=== PATIENT | female | born 1970 | race Two or more races ===

== ENCOUNTER 2016-10-13 20:34 | Emergency (ER) | payer SELFPAY ==
[2016-10-13 22:25] VITALS: BP 156/96
[2016-10-13] MEDS: TETRACAINE HCL 0.5% OPTH(EYE) SOLN 4ML LEFTEYE ONE ×2 (22:45→22:56)
[2016-10-13] MEDS ORDERED: FLUORESCEIN SOD 1 MG TEST STRIP LEFTEYE ONE (23:30)
[2016-10-13] MEDS ORDERED: IBUPROFEN 600 MG TAB PO ONE (23:45)
== END 2016-10-13 23:58 | disposition home or self-care (01) ==
LOC: ER 20:40
DX: S05.12XA Contusion of eyeball and orbital tissues, left eye, initial encounter (principal); X58.XXXA Exposure to other specified factors, initial encounter; Y93.01 Activity, walking, marching and hiking; Y99.8 Other external cause status; Y92.89 Other specified places as the place of occurrence of the external cause
CPT/HCPCS: 70480

== ENCOUNTER 2024-03-15 18:54 | Emergency (ER) | payer SELFPAY ==
[~2024-03-15] VITALS: Ht 170.2 cm; Wt 91.0 kg
[2024-03-15 20:26] LABS: Basophils # (auto) 0 10 ^3/uL (0-0.2); Basophils % (auto) 0.2 % (0.0-2.0); Eosinophils # (auto) 0 10 ^3/uL (0-0.8); Eosinophils % (auto) 0.2 % (0.0-7.0); Hematocrit 42.1 % (36.0-46.0); Hemoglobin 13.8 g/dL (12.2-16.2); Lymphocytes # (auto) 1.1 10 ^3/uL (0.4-5.4); Lymphocytes % (auto) 9.4 % (10.0-50.0); Mean Corpuscular Hemoglobin 25.7 pg (28.0-32.0); Mean Corpuscular Hgb Conc. 32.7 g/dL (32.0-36.0); Mean Corpuscular Volume 78.6 fL (80.0-100.0); Monocytes # (auto) 0.6 10 ^3/uL (0-1.3); Neutrophils # (auto) 9.9 10 ^3/uL (1.6-8.6); Neutrophils % (auto) 85.2 % (37.0-80.0); Platelet Count (auto) 414 10^3/uL (140-450); Red Blood Cells 5.36 10^6/uL (4.0-5.20); White Blood Cell 11.6 10^3/uL (4.4-10.8)
[2024-03-15 20:28] LABS: Red Cell Distribution Width 20.4 % (11.8-14.3)
[2024-03-15 20:40] LABS: Chloride 100 mmol/L (98-107); Potassium 3.4 mmol/L (3.5-5.1); Sodium 136 mmol/L (136-145)
[2024-03-15 20:41] LABS: Anion Gap 7 (5-15); Carbon Dioxide 29 mmol/L (20-30)
[2024-03-15 20:42] LABS: Calcium 9.6 mg/dL (8.7-10.4)
[2024-03-15 20:46] LABS: Glucose 126 mg/dL (74-106)
[2024-03-15 20:47] LABS: BUN/Creatinine Ratio 12.1 (10.0-20.0); Blood Urea Nitrogen 8 mg/dL (9-23)
[2024-03-15 22:35] VITALS: BP 147/91; TEMP 98.6
[2024-03-15] MEDS: SODIUM CHLORIDE 0.9% 1,000 ML IV ONE (22:49)
[2024-03-15] MEDS: PROCHLORPERAZINE EDISYLATE 5 MG/ML 2ML VIAL IV ONE (22:49)
[2024-03-15 22:55] VITALS: PULSE 63; RESP 18; O2SAT 99
== END 2024-03-15 23:31 | disposition left against medical advice (07) ==
LOC: ER 18:54
DX: R42 Dizziness and giddiness (principal); R11.10 Vomiting, unspecified; Z90.49 Acquired absence of other specified parts of digestive tract; Z98.51 Tubal ligation status
CPT/HCPCS: 36415; 70450; 74176; 80048; 85025; 93005; 96374; 99285; J0780; 96361